=== PATIENT | female | born 1935 | race Caucasian/White ===

== ENCOUNTER → 2020-12-06 | Day surgery (SDC) | payer MEDICARE ==
[~2020-12-06] MED LIST: 0.9 % SODIUM CHLORIDE 10 ML VIAL. ONE; BUPIVACAINE MPF 0.25% 10 ML VIAL. ONE; DEXAMETHASONE SOD PHOS 10 MG/ML VIAL. ONE; IOHEXOL 300 MG/ML 50 ML VIAL. ONE; LIDOCAINE 1% PF 30 ML VIAL. ONE
[2020-12-06 15:39] VITALS: BP 159/73
== END | disposition home or self-care (01) ==
LOC: SURG 15:28 → EDSTATUS 15:30
PROVIDERS: ATTEND Anesthesiology
DX: M54.16 Radiculopathy, lumbar region (principal); M47.816 Spondylosis without myelopathy or radiculopathy, lumbar region; M48.061 Spinal stenosis, lumbar region without neurogenic claudication; I10 Essential (primary) hypertension; E78.5 Hyperlipidemia, unspecified; M19.90 Unspecified osteoarthritis, unspecified site; E03.9 Hypothyroidism, unspecified; F41.9 Anxiety disorder, unspecified; F32.9 Major depressive disorder, single episode, unspecified; K57.30 Diverticulosis of large intestine without perforation or abscess without bleeding; Z98.890 Other specified postprocedural states; Z79.899 Other long term (current) drug therapy
CPT/HCPCS: 64483; J1100; J3490; Q9967

== ENCOUNTER → 2020-12-27 | Day surgery (SDC) | payer MEDICARE ==
[2020-12-27 14:53] VITALS: BP 148/81
== END | disposition home or self-care (01) ==
LOC: SURG 13:51
PROVIDERS: ATTEND Anesthesiology
DX: M54.16 Radiculopathy, lumbar region (principal); M48.061 Spinal stenosis, lumbar region without neurogenic claudication; M81.0 Age-related osteoporosis without current pathological fracture; I10 Essential (primary) hypertension; E78.5 Hyperlipidemia, unspecified; F41.9 Anxiety disorder, unspecified; F32.9 Major depressive disorder, single episode, unspecified; E03.9 Hypothyroidism, unspecified; M19.90 Unspecified osteoarthritis, unspecified site; Z98.890 Other specified postprocedural states; Z79.899 Other long term (current) drug therapy
CPT/HCPCS: 64483; J1100; J3490; Q9967

== ENCOUNTER → 2021-01-31 | Day surgery (SDC) | payer MEDICARE ==
[2021-01-31 14:07] VITALS: BP 124/72
== END | disposition home or self-care (01) ==
LOC: SURG 13:50
PROVIDERS: ATTEND Anesthesiology
DX: M54.16 Radiculopathy, lumbar region (principal); M48.061 Spinal stenosis, lumbar region without neurogenic claudication; I10 Essential (primary) hypertension; E78.5 Hyperlipidemia, unspecified; F32.9 Major depressive disorder, single episode, unspecified; M81.0 Age-related osteoporosis without current pathological fracture; E03.9 Hypothyroidism, unspecified; F41.9 Anxiety disorder, unspecified; K57.30 Diverticulosis of large intestine without perforation or abscess without bleeding; Z98.890 Other specified postprocedural states; Z79.899 Other long term (current) drug therapy
CPT/HCPCS: 99213; G0463

== ENCOUNTER → 2021-03-07 | Day surgery (SDC) | payer MEDICARE ==
[2021-03-07 12:43] VITALS: BP 142/80
== END | disposition home or self-care (01) ==
LOC: SURG 11:40
PROVIDERS: ATTEND Anesthesiology
DX: M54.16 Radiculopathy, lumbar region (principal); I10 Essential (primary) hypertension; E78.5 Hyperlipidemia, unspecified; M19.90 Unspecified osteoarthritis, unspecified site; F41.9 Anxiety disorder, unspecified; F32.9 Major depressive disorder, single episode, unspecified; E03.9 Hypothyroidism, unspecified
CPT/HCPCS: 64483

== ENCOUNTER → 2021-04-09 | Outpatient (CLI) | payer MEDICARE ==
[2021-03-07 12:43] VITALS: BP 142/80
[~2021-04-09] MED LIST changes: -0.9 % SODIUM CHLORIDE 10 ML VIAL. ONE; -BUPIVACAINE MPF 0.25% 10 ML VIAL. ONE; -DEXAMETHASONE SOD PHOS 10 MG/ML VIAL. ONE; +IOHEXOL 240 MG/ML 50ML VIAL. ONE; -IOHEXOL 300 MG/ML 50 ML VIAL. ONE; +IOHEXOL 300 MG/ML 75 ML VIAL. IV ONE; -LIDOCAINE 1% PF 30 ML VIAL. ONE
--- NOTE | 2021-04-09 14:47 | RAD ---
EXAM: CT ABDOMEN/PELVIS WITH AND WITHOUT CONTRAST. HISTORY: Abdominal pain, diarrhea, urinary tract infection. TECHNIQUE: Computed tomography of the abdomen and pelvis was performed before and after the intraveno us administration of iodinated contrast. One or more of the following individualized dose reduction t echniques were utilized for this examination: 1. Automated exposure control. 2. Adjustment of the mA and/or kV according to patient size. 3. Use of iterative reconstruction technique. COMPARISON: None. FINDINGS: Lung windows through the visualized portions of the bases reveal mild atelectasis. Coronary atherosclerotic calcifications are noted. Bone windows reveal no suspicious lesions. There is slight grade 1 anterolisthesis at L5-S1. There is diffuse severe lumbar degenerative disc disease. Vertebro plasty changes are noted at T12. A right ovarian cyst measures 3.3 x 2.6 cm. Another on the left measures 2.3 x 1.8 cm. No solid lesio ns are identified. Sigmoid diverticulosis is severe. No clear acute inflammation is identified. Colonic diverticulosis r emains severe to the splenic flexure and is mild more proximally. There are limitations from respirat ory motion artifact. There is no small bowel obstruction. The appendix is not inflamed. A 5 mm hypoattenuating lesion in hepatic segment 8 is likely a benign cyst or hemangioma in the absen ce of known malignancy. Another in segment one and measures 7 mm. The gallbladder, pancreas, adrenal glands, spleen and kidneys are unremarkable. There are no pathologically enlarged lymph nodes. IMPRESSION: 1. Bilateral adnexal cysts measures 3.3 cm on the right and 2.3 cm on the left. No solid lesions are appreciated, but these are not physiologic in this demographic. Pelvic ultrasound could further evalu ate if the diagnosis remains unclear. 2. Severe left colonic diverticulosis without clear acute inflammation. No cause for acute pain is id entified. Electronically signed by: Kalina Chirinos MD (04/09/2021 2:44 PM) [id number]
== END ==
LOC: CT 09:57
PROVIDERS: ATTEND Family Medicine
DX: K57.30 Diverticulosis of large intestine without perforation or abscess without bleeding (principal); N39.0 Urinary tract infection, site not specified; R19.7 Diarrhea, unspecified
CPT/HCPCS: 74178; Q9967

== ENCOUNTER → 2021-09-26 | Outpatient (CLI) | payer MEDICARE ==
[2021-03-07 12:43] VITALS: BP 142/80
--- NOTE | 2021-09-26 16:06 | RAD ---
EXAM: CHEST 2 VIEWS. HISTORY: Bronchitis. COMPARISON: None. FINDINGS: Frontal and lateral views of the chest are obtained. There are no confluent infiltrates. There is mild atelectasis in the left base. Hyperinflation is con sistent with chronic obstructive pulmonary disease. There is no pneumothorax or pleural effusion. The heart is not enlarged. Vertebroplasty changes are noted at the thoracolumbar junction. There are ath erosclerotic calcifications of the aorta. IMPRESSION: 1. Correlate for chronic obstructive pulmonary disease. No confluent infiltrates. Electronically signed by: Kalina Chirinos MD (09/26/2021 4:04 PM) [id number]
== END ==
LOC: RAD 15:39
PROVIDERS: ATTEND Nurse Practitioner Family
DX: J98.11 Atelectasis (principal); I70.0 Atherosclerosis of aorta; Z79.890 Hormone replacement therapy
CPT/HCPCS: 71046